=== PATIENT | female | born 1990 | race African-American/Black ===

== ENCOUNTER 2024-03-09 17:02 | Emergency (ER) | payer OTHER, SELFPAY ==
[2024-03-09 17:05] VITALS: BP 151/83
--- NOTE | 2024-03-09 17:32 | ED.PDOC.TRB ---
ED Provider Triage
-
Patient seen by provider in Triage?: Seen in Triage
A medical screening examination has been initiated by a qualified medical provider. Based on the assessment performed at this time, it has been determined that an emergent medical condition may exist and the patient has been informed that further
medical evaluation and possible additional diagnostic testing may be needed.
This is a medical evaluation conducted in person to initiate diagnostic evaluation and provide initial therapeutics. Please see further documentation by the treating clinician.
GENERAL: Alert , in no apparent distress
EYE: No visual abnormalities
NECK: No visual changes
ENT: No visual abnormalities
CARDIAC:
LUNGS: Breathing normally
ABDOMEN:
NEUROLOGICAL: Alert and oriented, no visual focal neuro deficits
SKIN: Warm and dry, skin intact.
MUSCULOSKELETAL: No edema, well perfused. Moving normally
PSYCH: Normal and appropriate interaction.
HPI/RA Plan: 34-year-old female presenting to the emergency department with left anterior maxillary discomfort and swelling worsening over the past few days. Denies specific fevers but has been feeling some lightheadedness worsening over the past
few days as well. Has been taking Motrin without relief. On examination patient does have some swelling discomfort to the left anterior maxillary region. Could be consistent with an early infection. Patient may need antibiotics. Otherwise
pending labs for lightheadedness.
[2024-03-09 17:44] LABS: HCG, Serum Qualitative Screen Negative
[2024-03-09 17:45] LABS: Hematocrit 36.7 % (37.0-47.0); Hemoglobin 12.9 g/dL (12.0-16.0); Mean Corp Hgb Conc. 35.1 g/dL (33.0-37.0); Mean Corpuscular Hgb 29.7 pg (27.0-31.0); Mean Corpuscular Volume 84.6 fL (81.0-99.0); Mean Platelet Volume 10.9 fL (7.4-10.4); Platelet Count 242 10^3/uL (130-400); Red Blood Cell Count 4.34 10^6/uL (4.20-5.40); Red Cell Dist. Width 12.3 % (11.5-14.5); White Blood Cell Count 6.4 10^3/uL (4.8-10.8)
[2024-03-09 17:50] LABS: AST (SGOT) 24 U/L (14-36); Albumin 4.4 g/dl (3.5-5.0); Blood Urea Nitrogen 13 mg/dl (7-17); Carbon Dioxide 25 mmol/L (22-30); Chloride 108 mmol/L (98-107); Glucose 99 mg/dl (70-99); Potassium 4.2 mmol/L (3.5-5.1); Sodium 140 mmol/L (135-145); Total Bilirubin 0.2 mg/dl (0.2-1.3); Total Protein 7.3 g/dl (6.3-8.2); eGFR > 60.00
[2024-03-09 17:58] LABS: ALT (SGPT) 19 U/L (0-35); Alkaline Phosphatase 67 U/L (38-126); Calcium 9.6 mg/dl (8.4-10.2)
[2024-03-09 18:29] LABS: % Basophils 0.9 % (0-2); % Eosinophils 3.6 % (0-6); % Lymphocytes 41.1 % (20.5-51.1); % Monocytes 9.6 % (1.7-9.3); % Neutrophils 44.8 % (42.2-75.2); Absolute Basophils 0.1 10^3/uL (0-0.2); Absolute Eosinophils 0.2 10^3/uL (0-0.7); Absolute Lymphocytes 2.6 10^3/uL (1.2-3.4); Absolute Monocytes 0.6 10^3/uL (0.1-0.6); Absolute Neutrophils 2.9 10^3/uL (1.4-6.5); Nucleated Red Blood Cells % 0 %
[2024-03-09 19:46] VITALS: BP 102/71
[2024-03-09] MEDS: PEN VK 500 MG PO (21:01)
--- NOTE | 2024-03-17 17:45 | ED.GENMED ---
History of Present Illness
General
Chief Complaint: Fatigue
Source: patient
Exam Limitations: none
Time Seen by Provider: 03/09/24 20:50
Nursing documentation reviewed up to this point in time: agreed with
History of Present Illness
History of Present Illness:
Patient to ED with complaint of left upper dental pain. Symptoms started a few days ago and continue to worsen. No fever/chills. No history oftrauma. Brought self to ED for eval.
Past History
Past History
ED Past Medical History: Other (migraines)
ED Past Surgical History: Gynecological (ectopic, tubal ligation) and Other (breast reduction, abdominoplasty)
Social History
Tobacco: Non-smoker
Drug: None
Review of Systems
Review of Systems
Allergies reviewed?: Yes
All Other Systems: ROS reviewed and negative except as documented in HPI and ROS
Constitutional: Reports no symptoms
EENT: Reports other (left upper dental pain)
Respiratory: Reports no symptoms
Cardiac: Reports no symptoms
ABD/GI: Reports no symptoms
Musculoskeletal: Reports no symptoms
Skin: Reports no symptoms
Neurological: Reports no symptoms
Psychiatric: Reports no symptoms
Phy Exam
General Physical Exam
General Presentation: well appearing and no apparent distress
General age: appears stated age
General Skin: warm and dry
General Habitus: normal
General Mental: alert
ENT Exam
ENT Exam: other (Pain to gingiva above left upper lateral incisor. No swelling/abscess noted. Full ROM to jaw. No dental injury)
Musculoskeletal Exam
Musculoskeletal Exam: full ROM and neuro vasc intact
Skin Exam
Skin Exam: normal color, warm/dry and no rash
Psychiatric Exam
Psychiatric Exam: normal mood/affect
Course
Orders/Labs/Results
Orders:
Orders
03/09/24 17:07
Electrocardiogram (*1) Urgent
Reason for Study: Vertigo / Dizzy
EKG- Treatment ONCE
03/09/24 17:16
Add On- LAB Urgent
Tests Added?: hcg
03/09/24 17:19
Complete Blood Count/With Diff Urgent
Comprehensive Metabolic Panel Urgent
HCG, Serum Qualitative Screen Urgent
Comment: ADDON
03/09/24 20:56
Penicillin V Potassium [Pen Vk] 500 mg PO NOW STA
Abnormal Lab Results
03/09/24
17:19
Hct 36.7 L %
(37.0-47.0)
MPV 10.9 H fL
(7.4-10.4)
Monocytes % 9.6 H %
(1.7-9.3)
Chloride 108 H mmol/L
(98-107)
03/09/24 17:19
03/09/24 17:19
Vital Signs
Initial and Last Documented VS:
Initial Vital Signs
Temp Pulse Resp BP Pulse Ox
98.6 F 83 18 151/83 100
03/09/24 17:05 03/09/24 17:05 03/09/24 17:05 03/09/24 17:05 03/09/24 17:05
Last Documented Vital Signs
Temp Pulse Resp BP Pulse Ox
98.6 F 71 16 102/71 100
03/09/24 17:05 03/09/24 19:46 03/09/24 20:00 03/09/24 19:46 03/09/24 19:46
*Critical Care Note
Total Time (30-74mins, 75-104mins- exclusive of procedures): Not Applicable
ED Attending Note
-
Portions of this chart may have been created with voice recognition software.� Occasional wrong word or��sound alike� substitutions may have occurred due to the inherent limitations of voice recognition software.
Discharge Plan
Departure
Patient Disposition: Home (Routine Discharge)
Date of Disposition: 03/09/24
Time of Disposition: 20:57
Patient with high blood pressure during this ER visit?: No
Condition: Good
Covid-19: Not Applicable
Discharge Problem:
Pain, dental
Instructions: Dental Pain ED
Prescriptions:
New
penicillin V potassium 500 mg tablet
500 mg PO TID 10 Days Qty: 30 0RF
hydrocodone-acetaminophen 5-325 mg tablet
1 tab PO Q4H PRN (Reason: Pain) Qty: 10 0RF
Activity Restrictions/Additional Instructions:
Follow up with your dentist. Return to the emergency department immediately for any changes in/worsening of your symptoms.
Interventions
Interventions:
*Risk Screen - Suicide Last Done: 03/09/24 17:05
*General Assessment Last Done: 03/09/24 17:05
*Neglect/Abuse Screening Last Done: 03/09/24 17:05
ED- Fall Risk Assessment Last Done: 03/09/24 21:09
*ED COVID-19 Vaccine History Last Done: 03/09/24 17:05
*Nursing Disposition Last Done: 03/09/24 21:09
Discharge Date and Time
Discharge Date/Time: 03/09/24 21:09
Print Language: SLOVAK
== END 2024-03-09 21:09 | disposition home or self-care (01) ==
LOC: EMR 17:02
PROVIDERS: Emergency Medicine; EMERGENCY PHYSICIAN Emergency Medicine
DX: K08.89 Other specified disorders of teeth and supporting structures (principal); R68.84 Jaw pain; R42 Dizziness and giddiness; R22.0 Localized swelling, mass and lump, head; R53.83 Other fatigue; G43.909 Migraine, unspecified, not intractable, without status migrainosus
CPT/HCPCS: 99283; 80053; 84703; 85025; 93005

== ENCOUNTER 2024-06-08 16:46 | Emergency (ER) | payer OTHER, SELFPAY ==
[2024-06-08 16:49] VITALS: BP 125/83
[2024-06-08 18:28] LABS: % Basophils 0.8 % (0-2); % Eosinophils 3.5 % (0-6); % Immature Granulocytes 0.2 % (0-0.5); % Lymphocytes 40.8 % (20.5-51.1); % Monocytes 11.6 % (1.7-9.3); % Neutrophils 43.1 % (42.2-75.2); Absolute Basophils 0.1 10^3/uL (0-0.2); Absolute Eosinophils 0.2 10^3/uL (0-0.7); Absolute Lymphocytes 2.7 10^3/uL (1.2-3.4); Absolute Monocytes 0.8 10^3/uL (0.1-0.6); Absolute Neutrophils 2.9 10^3/uL (1.4-6.5); Hematocrit 35.8 % (37.0-47.0); Hemoglobin 12.8 g/dL (12.0-16.0); Mean Corp Hgb Conc. 35.8 g/dL (33.0-37.0); Mean Corpuscular Hgb 29.6 pg (27.0-31.0); Mean Corpuscular Volume 82.7 fL (81.0-99.0); Mean Platelet Volume 11.2 fL (7.4-10.4); Nucleated Red Blood Cells % 0 %; Platelet Count 246 10^3/uL (130-400); Red Blood Cell Count 4.33 10^6/uL (4.20-5.40); Red Cell Dist. Width 12.3 % (11.5-14.5); White Blood Cell Count 6.7 10^3/uL (4.8-10.8)
--- NOTE | 2024-06-08 18:29 | ED.GENMED ---
History of Present Illness
General
Chief Complaint: Fatigue
Source: patient
Exam Limitations: none
Time Seen by Provider: 06/08/24 17:45
Nursing documentation reviewed up to this point in time: agreed with
History of Present Illness
History of Present Illness:
34-year-old female with no significant chronic medical issues presents to the emergency room for evaluation of right sided abdominal pain, malaise. Patient reports that she has been feeling unwell for the past 2 weeks. She reports a consistent
pain in the right flank that radiates towards the right upper abdomen. She reports that she has associated nausea particularly after meals. No vomiting. She has not had any diarrhea or constipation�stools have been formed�but she has had some
discoloration of her stool she says they have been a yellowish-green color. She has not had any fevers or chills. She denies any dysuria, hematuria, change in urinary frequency. She denies any vaginal bleeding or discharge. She says that
symptoms have been consistent and she is having early satiety and poor appetite due to her postprandial nausea. Coworker urged her to come to the ER to be evaluated today. She does note that in addition to the above she is concerned because she
noticed 2 small bumps on the right posterior neck that are painful to the touch. Denies any trauma or injury. She does have prior history of ectopic requiring surgical invention she believes on the right side and prior abdominoplasty.
She does admit that recently she has had increased alcohol consumption in the setting of recent loss of a family member.
Past History
Past History
ED Past Medical History: Other (migraines)
ED Past Surgical History: Gynecological (ectopic, tubal ligation) and Other (breast reduction, abdominoplasty)
Social History
Tobacco: Non-smoker
Drug: None
Review of Systems
Review of Systems
All Other Systems: ROS reviewed and negative except as documented in HPI and ROS
Constitutional: Reports fatigue; Denies fever or chills
Respiratory: Denies trouble breathing
Cardiac: Denies chest pain
ABD/GI: Reports abdominal pain, nausea and anorexia; Denies vomiting, diarrhea, constipated or bloody stools
: Denies dysuria, frequency, flank pain or bleeding
Musculoskeletal: Reports back pain; Denies neck pain
Neurological: Denies dizzy or headache
Phy Exam
Physical Exam
Physical Exam:
General: Awake, alert, oriented x3; no acute distress
Head: Normocephalic, atraumatic
Eyes: Conjunctiva normal, sclera anicteric
Throat: Airway intact, handling secretions
Neck: Trachea midline, supple without meningismus; she has 2 small but palpable enlarged lymph nodes in the posterior cervical chain one in the region of the occiput essentially and then another about 4 cm below this; no localized redness, mild
tenderness to the touch
Lungs: Clear to auscultation bilaterally, no wheezing, rales, rhonchi
Heart: Regular rate and rhythm, no murmurs, gallops, or rubs
Abd: Soft, non distended, mildly tender right upper quadrant, no palpable mass or palpable hepatosplenomegaly
Back: No CVA tenderness
Neuro: Cranial nerves grossly intact, speech fluid no gross deficits
Extremities: No edema in extremities, equal pulses in all extremities
Scores
Heart Failure Risk
Heart Failure Risk Score: Not Applicable
Heart Score for Chest Pain Patients
STEMI patient?: Not applicable
Withdrawal Assessment of Alcohol
Withdrawal Assessment Completed?: Not applicable
Course
Orders/Labs/Results
Orders:
Orders
06/08/24 17:46
Electrocardiogram (*1) Urgent
Reason for Study: Fatigue / Weakness
EKG- Treatment ONCE
Test Result ONCE
06/08/24 17:58
US Abdomen Complete/Upper Urgent
Comment:
Reason For Exam: right flank pain--GB eval
US Neck [US Thyroid/Neck/Head] Urgent
Comment:
Reason For Exam: swelling/lump in right post-lat neck
06/08/24 18:08
COVID-19 Antigen Urgent
Source: Nasal Swab
Complete Blood Count/With Diff Urgent
Comprehensive Metabolic Panel Urgent
Analia-Marie Virus Ab Panel I [S] Routine
HCG, Serum Qualitative Screen Urgent
Lipase Urgent
Lyme Progressive Urgent
Comment: ADD ON
TSH Reflex To Free T4 Urgent
06/08/24 19:28
CT Abd/pelvis W Iv Cont Urgent
Comment:
Reason For Exam: right upper abd pain and tenderness, nausea
06/08/24 19:40
Urinalysis Reflex To Culture Urgent
Date Specimen was Collected: 06/08/24
Time Specimen was Collected: 17:58
06/08/24 20:02
Add On- LAB Urgent
Tests Added?: Lyme progressive
06/08/24 20:08
Add On- LAB Urgent
Tests Added?: Analia Marie Virus Ab Panel
06/08/24 21:09
Pantoprazole [Protonix IV] 40 mg IV NOW STA
Abnormal Lab Results
06/08/24
18:08
Hct 35.8 L %
(37.0-47.0)
MPV 11.2 H fL
(7.4-10.4)
Absolute Monos (auto) 0.8 H 10^3/uL
(0.1-0.6)
Monocytes % 11.6 H %
(1.7-9.3)
Total Bilirubin 0.1 L mg/dl
(0.2-1.3)
06/08/24 18:08
06/08/24 18:08
Vital Signs
Initial and Last Documented VS:
Initial Vital Signs
Temp Pulse Resp BP Pulse Ox
36.7 C 82 16 125/83 100
06/08/24 16:49 06/08/24 16:49 06/08/24 16:49 06/08/24 16:49 06/08/24 16:49
Last Documented Vital Signs
Temp Pulse Resp BP Pulse Ox
36.7 C 75 19 101/67 98
06/08/24 16:49 06/08/24 19:45 06/08/24 19:45 06/08/24 19:11 06/08/24 19:45
MDM/Problems Addressed
Differential Diagnosis Includes:
Abdominal pain: Cholelithiasis, cholecystitis, UTI, pyelonephritis, hepatitis, gastritis/PUD, pancreatitis
Bump on the neck: Lymphadenitis, lymphoma, reactive lymph node
MDM/Problems Addressed:
34-year-old female presents for evaluation of malaise, right flank/abdominal pain over the past 2 weeks. Has had associated swollen lymph nodes on the right posterior lateral neck as well. The symptoms occurring in the setting of recent increased
alcohol intake. Vitals and exam as above. Will place an IV send labs including a CBC and a CMP, lipase. Check hCG and thyroid studies. Check urinalysis. Can swab for COVID. Will check upper abdominal ultrasound to start as well as an
ultrasound of the neck. Will monitor closely reassess after the above.
Labs reviewed: CBC unremarkable, CMP no clinically significant abnormalities�notably normal LFTs and lipase. Thyroid studies normal. hCG negative. Upper abdominal ultrasound negative for any acute pathology, normal-appearing gallbladder and
liver. Neck ultrasound confirms lump as small lymph node posterior cervical chain. With continued pain and tenderness will send for CT abdomen pelvis to further evaluate.
CT abdomen pelvis reviewed: No acute pathology to account for symptoms. With recent increased alcohol use and pain in the upper abdomen radiating towards the right flank one possible consideration would be ulcer; this would also account for early
satiety and nausea. Would not explain cervical lymph node enlargement but this could be reactive from unrelated process. She will need further evaluation of her symptoms and close monitoring especially to ensure resolution of posterior cervical
chain lymph node enlargement. No clear emergent pathology evident on ED workup however, can safely be discharged and follow-up with PCP as an outpatient. Also provided referral to GI and sent message to the office to expedite follow-up. I do think
it would be reasonable to start on a PPI and I advised alcohol cessation as well. Spoke about return precautions all questions answered.
Chronic conditions affecting care:
Alcohol use
*Radiology
Radiology exam reviewed: radiology read reviewed
*Pulse Oximetry
Patient hypoxic: no
*EKG
Interpreted by ED Provider?: Yes
Heart Rate: 83
Rate: normal
Rhythm: sinus
[place]: normal axis
Interval: normal interval
QRS Pattern: normal QRS
Ischemia: no ischemia
*Critical Care Note
Total Time (30-74mins, 75-104mins- exclusive of procedures): Not Applicable
Data Reviewed
Source: patient
ED Attending Note
-
Portions of this chart may have been created with voice recognition software.� Occasional wrong word or��sound alike� substitutions may have occurred due to the inherent limitations of voice recognition software.
Discharge Plan
Departure
Patient Disposition: Home (Routine Discharge)
Date of Disposition: 06/08/24
Time of Disposition: 21:09
Patient with high blood pressure during this ER visit?: No
Discharge Problem:
Lymphadenopathy, posterior cervical, Abdominal pain
Instructions: Peptic ulcers, Lymphadenitis (DC)
Prescriptions:
New
pantoprazole 40 mg tablet,delayed release (DR/EC)
40 mg PO DAILY Qty: 30 0RF
No Action
penicillin V potassium 500 mg tablet
500 mg PO TID 10 Days Qty: 30 0RF
hydrocodone-acetaminophen 5-325 mg tablet
1 tab PO Q4H PRN (Reason: Pain) Qty: 10 0RF
Referrals:
Amelia Valenzuela CRNP [Non-Admitting Privileges] - Call in 1-3 days for appt (Call your primary doctor after your ED visit today to try and move up you appointment)
Deni Doshi, [Active] - Call in 1-3 days for appt (You should receive a call from the GI office to schedule an appointment after your ED visit. If you do not receive a call by tomorrow afternoon, please call the number above. )
Activity Restrictions/Additional Instructions:
Thank you for visiting the Emergency Department at [facility].
1. Please schedule a follow up appointment as directed. Call first thing tomorrow morning to make an appointment.
2. If indicated, please take your medications as instructed and indicated on discharge paperwork.
3. If any of your symptoms do not improve, or persist, or become more severe within 6-12 hours, please return to the emergency department for further care.
4. Please return to the emergency department if you develop a headache, neck pain/stiffness, fever greater than 100.4F, chest pain, shortness of breath, persistent nausea, vomiting, slurred speech, difficulty walking, numbness/tingling, weakness,
signs of infection or any other symptoms that are worrisome to you.
Please call [phone] if you have any questions.
Interventions
Interventions:
*Risk Screen - Suicide Last Done: 06/08/24 16:49
*General Assessment Last Done: 06/08/24 16:49
*Neglect/Abuse Screening Last Done: 06/08/24 16:49
*ED COVID-19 Vaccine History Last Done: 06/08/24 16:49
Discharge Date and Time
Print Language: ALGERIAN
[2024-06-08 18:34] LABS: HCG, Serum Qualitative Screen Negative
[2024-06-08 18:44] LABS: ALT (SGPT) 20 U/L (0-35); AST (SGOT) 25 U/L (14-36); Albumin 4.5 g/dl (3.5-5.0); Alkaline Phosphatase 65 U/L (38-126); Blood Urea Nitrogen 12 mg/dl (7-17); Calcium 9.6 mg/dl (8.4-10.2); Carbon Dioxide 25 mmol/L (22-30); Chloride 101 mmol/L (98-107); Glucose 91 mg/dl (70-99); Potassium 4.4 mmol/L (3.5-5.1); Sodium 140 mmol/L (135-145); Total Bilirubin 0.1 mg/dl (0.2-1.3); Total Protein 7.8 g/dl (6.3-8.2); eGFR > 60.00
[2024-06-08 18:45] LABS: Lipase 71 U/L (23-300)
[2024-06-08 18:46] LABS: COVID-19 Antigen Negative (Negative)
[2024-06-08 19:11] VITALS: BP 101/67
[2024-06-08 19:20] LABS: TSH Reflex To Free T4 2.38 uIU/ml (0.47-4.68)
[2024-06-08 19:49] LABS: Urine Albumin Negative (Neg - Trace); Urine Bilirubin Negative (Negative); Urine Character Clear (Clear); Urine Color Yellow; Urine Glucose Negative (Negative); Urine Ketone Negative (Negative); Urine Leukocyte Negative (Negative); Urine Nitrite Negative (Negative); Urine Occult Blood Negative (Negative); Urine Urobilinogen Negative (Neg - 1+)
[2024-06-08] MEDS: PROTONIX IV 40 MG IV (21:14)
[2024-06-08 21:18] VITALS: BP 101/78
[2024-06-11 05:42] LABS: EBV-EA (D) Ab IgG <5.0 U/mL (0.0-10.9); EBV-NA IgG >600.0 U/mL (0.0-21.9); EBV-VCA IgM Antibodies <10.0 U/mL (0.0-43.9)
== END 2024-06-08 21:25 | disposition home or self-care (01) ==
LOC: EMR 16:46
PROVIDERS: EMERGENCY PHYSICIAN Emergency Medicine; FAMILY PHYSICIAN Family Medicine
DX: R59.0 Localized enlarged lymph nodes (principal); R10.11 Right upper quadrant pain; Z11.52 Encounter for screening for COVID-19
CPT/HCPCS: 99285; 96374; 74177; 76536; 76700; 80053; 81003; 83690; 84443; 84703; 85025; 86618; 86663; 86664; 86665; 87811; 93005; Q9967

== ENCOUNTER → 2024-06-17 06:18 | Day surgery (SDC) | payer OTHER, SELFPAY | LOC: GI 06:18 | PROVIDERS: ATTENDING PHYSICIAN Internal Medicine | DX: R10.13 Epigastric pain (principal); R68.81 Early satiety; K29.50 Unspecified chronic gastritis without bleeding; K31.89 Other diseases of stomach and duodenum | CPT/HCPCS: 43239; 88305; 74019; 88342 ==